=== PATIENT | female | born 1960 | race Caucasian/White ===

== ENCOUNTER → 2018-04-23 16:00 | Outpatient (CLI) | payer OTHER, SELFPAY | DX: Z23 Encounter for immunization (principal) | CPT/HCPCS: 90471; 90686 ==

== ENCOUNTER → 2019-04-24 12:15 | Outpatient (CLI) | payer OTHER, SELFPAY | DX: Z23 Encounter for immunization (principal) | CPT/HCPCS: 90471; 90686 ==

== ENCOUNTER → 2019-05-09 12:52 | Outpatient (CLI) | payer OTHER, SELFPAY ==
[2019-05-09 13:22] LABS: Add Manual Diff / Slide Review NO; Basophils Absolute Auto 0 /uL (0-100); Basophils Percent Auto 0.6 % (0-2); Eosinophils Absolute Auto 100 /uL (0-450); Eosinophils Percent Auto 2.6 % (2-4); Hematocrit 39.8 % (36-46); Hemoglobin 13.9 g/dL (12.0-16.0); Lymphocytes Absolute Auto 1100 /uL (1100-4500); Lymphocytes Percent Auto 31.7 % (25-40); Mean Corpuscular HGB Conc 34.9 % (30-36); Mean Corpuscular Hemoglobin 30.4 PG (26-34); Mean Corpuscular Volume 87.1 fL (80-100); Monocytes Absolute Auto 300 /uL (0-900); Monocytes Percent Auto 8.8 % (3-14); Neutrophils Absolute Auto 2000 /uL (1500-7000); Neutrophils Percent Auto 56.3 % (50-75); Platelet Count 193 X10^3/uL (150-400); Red Blood Cell Count 4.57 X10^6/uL (4.0-5.2); White Blood Cell Count 3.6 X10^3/uL (4.5-11.0)
[2019-05-09 14:55] LABS: Alanine Aminotransferase 18 IU/L (9-52); Albumin Globulin Ratio 2.1 (1.0-2.8); Alkaline Phosphatase 61 U/L (38-126); Aspartate Aminotransferase 22 IU/L (14-36); BUN Creatinine Ratio 21.7 (6-22); Bilirubin Total 0.7 mg/dL (0.2-1.3); Blood Urea Nitrogen 13 mg/dL (7-17); Calcium 10.4 mg/dL (8.4-10.2); Carbon Dioxide 31 mmol/L (22-32); Chloride 100 mmol/L (98-107); Estimated Glomerular Filt Rate > 60.0 mL/min (>60); Globulin 2.4 g/dL (1.7-4.1); Glucose 85 mg/dL (70-100); HEMOLYSIS < 15 (0-50); Lipase 96 U/L (23-300); Potassium 5.2 mmol/L (3.4-5.1); Sodium 140 mmol/L (137-145); Total Protein 7.4 g/dL (6.3-8.2)
[2019-05-13 14:40] LABS: Urea Breath Test >18YRS NOT DETECTED
== END ==
PROVIDERS: Hospitalist; PCP Internal Medicine; Visit Provider Internal Medicine
DX: R10.13 Epigastric pain (principal)
CPT/HCPCS: 36415; 80053; 83013; 83690; 85025

== ENCOUNTER → 2019-07-10 18:22 | Outpatient (CLI) | payer OTHER, SELFPAY ==
--- NOTE | 2019-07-10 18:25 | DI.MG.S_ITS ---
BILATERAL DIGITAL SCREENING MAMMOGRAM 3D/2D WITH CAD: 07/10/2019 CLINICAL: Routine screening. Comparison is made to exams dated: 11/07/2017 mammogram, 07/30/2014 mammogram, and 04/16/2014 mammogram - [facility]. The tissue of both breasts is heterogeneously dense. This may lower the sensitivity of mammography. Current study was also evaluated with a Computer Aided Detection (CAD) system. No significant masses, calcifications, or other findings are seen in either breast. There has been no significant interval change. IMPRESSION: NEGATIVE There is no mammographic evidence of malignancy. A 1 year screening mammogram is recommended. This exam was interpreted at Station ID: [id number]. NOTE: For mammograms, a report in lay terms will be sent to the patient. Approximately 15% of breast malignancies will not be visualized mammographically. In the management of a palpable breast mass, a negative mammogram must not discourage biopsy of a clinically suspicious lesion. Electronically Signed By: Arpita whipple/hola:07/11/2019 10:08:55 letter sent: Normal Exam ACR BI-RADS Category 1: Negative 3341F
== END ==
PROVIDERS: PCP Nurse Practitioner; Visit Provider Nurse Practitioner
DX: Z12.31 Encounter for screening mammogram for malignant neoplasm of breast (principal)
CPT/HCPCS: 77063; 77067

== ENCOUNTER → 2020-04-27 15:56 | Outpatient (CLI) | payer OTHER, SELFPAY | PROVIDERS: PCP Nurse Practitioner; Visit Provider Registered Nurse Diabetes Educator | DX: Z87.440 Personal history of urinary (tract) infections (principal) | CPT/HCPCS: 87086 ==

== ENCOUNTER → 2020-06-25 07:19 | Outpatient (CLI) | payer OTHER, SELFPAY ==
[2020-06-25 08:26] LABS: Add Manual Diff / Slide Review NO; Basophils Absolute Auto 0 /uL (0-100); Basophils Percent Auto 0.6 % (0-2); Eosinophils Absolute Auto 100 /uL (0-450); Eosinophils Percent Auto 3.8 % (2-4); Hematocrit 39.3 % (36-46); Hemoglobin 13.4 g/dL (12.0-16.0); Lymphocytes Absolute Auto 1100 /uL (1100-4500); Lymphocytes Percent Auto 36.9 % (25-40); Mean Corpuscular HGB Conc 34.1 % (30-36); Mean Corpuscular Hemoglobin 30.2 PG (26-34); Mean Corpuscular Volume 88.7 fL (80-100); Monocytes Absolute Auto 300 /uL (0-900); Monocytes Percent Auto 8.5 % (3-14); Neutrophils Absolute Auto 1500 /uL (1500-7000); Neutrophils Percent Auto 50.2 % (50-75); Platelet Count 182 X10^3/uL (150-400); Red Blood Cell Count 4.43 X10^6/uL (4.0-5.2); Red Cell Distribution Width 12.4 % (11.6-14.8)
[2020-06-25 08:35] LABS: Alanine Aminotransferase 11 IU/L (<35); Albumin 4.6 g/dL (3.5-5.0); Albumin Globulin Ratio 1.7 (1.0-2.8); Alkaline Phosphatase 62 U/L (38-126); Aspartate Aminotransferase 24 IU/L (14-36); BUN Creatinine Ratio 29.3 (6-22); Bilirubin Total 0.6 mg/dL (0.2-1.3); Blood Urea Nitrogen 17 mg/dL (7-17); Calcium 9.6 mg/dL (8.4-10.2); Carbon Dioxide 36 mmol/L (22-32); Chloride 105 mmol/L (98-107); Cholesterol 188 mg/dL (140-199); Estimated Glomerular Filt Rate > 60.0 mL/min (>60); Globulin 2.7 g/dL (1.7-4.1); Glucose 87 mg/dL (80-110); HDL Cholesterol 84 mg/dL (40-60); HEMOLYSIS < 15 (0-50); LDL Cholesterol Calculated 91 mg/dL (<100); Potassium 4.6 mmol/L (3.4-5.1); Sodium 141 mmol/L (137-145); Total Protein 7.3 g/dL (6.3-8.2); Triglycerides 63 mg/dL (35-150)
[2020-06-25 09:14] LABS: Free T3, Triiodothyronine Free 2.62 pg/mL (2.77-5.27); Free T4, Direct Thyroxine 1.01 ng/dL (0.78-2.19)
[2020-06-25 09:28] LABS: Thyroid Stimulating Hormone 1.32 uIU/mL (0.47-4.68)
[2020-06-28 17:31] LABS: Hep C Virus Ab w/Reflex Quant NEGATIVE s/c (NEGATIVE)
== END ==
PROVIDERS: PCP Nurse Practitioner; Referring Provider Nurse Practitioner; Visit Provider Nurse Practitioner
DX: Z00.00 Encounter for general adult medical examination without abnormal findings (principal); E83.52 Hypercalcemia
CPT/HCPCS: 36415; 80053; 80061; 84439; 84443; 84481; 85025; 86803

== ENCOUNTER → 2020-07-30 16:33 | Outpatient (CLI) | payer OTHER, SELFPAY ==
[2020-07-30] MEDS: COVID-19 VACC(MODERNA-1)/PF 100 MCG/0.5 ML VIAL IM (16:47)
== END ==
PROVIDERS: PCP Nurse Practitioner; Visit Provider Internal Medicine
DX: Z23 Encounter for immunization (principal)
CPT/HCPCS: 0011A; 91301

== ENCOUNTER → 2020-08-26 14:44 | Outpatient (CLI) | payer OTHER, SELFPAY ==
[2020-08-26] MEDS: COVID-19 VACC #2, MRNA(MOD) 100 MCG/0.5 ML VIAL IM (14:50)
== END ==
PROVIDERS: PCP Nurse Practitioner; Visit Provider Internal Medicine
DX: Z23 Encounter for immunization (principal)
CPT/HCPCS: 0012A; 91301

== ENCOUNTER → 2020-11-29 10:40 | Outpatient (CLI) | payer OTHER, SELFPAY ==
[2020-11-29 12:11] LABS: COVID19 -Nasal RAPID Negative (Negative)
== END ==
PROVIDERS: PCP Nurse Practitioner; Visit Provider Surgery
DX: Z20.822 Contact with and (suspected) exposure to COVID-19 (principal)
CPT/HCPCS: 87635; C9803

== ENCOUNTER 2020-11-30 08:12 | Day surgery (SDC) | payer OTHER, SELFPAY ==
[2020-11-30] VITALS (13 sets, daily range): BP systolic 87–105; BP diastolic 40–62; PULSE 66–79; RESP 12–19; TEMP 36.1–36.6; O2SAT 100; BMI 22.2
--- NOTE | 2020-11-30 08:21 | PM.HP.1 ---
History of Present Illness History of Present Illness Date Patient Seen: 11/30/20 Time Patient Seen: 08:21 Chief complaint: SDC Narrative: colon cancer screening No current gi issues, no family history for colon cancer. This is her second scope, last one was 8 years ago. Polyps were found that were not adenomatous Patient History Medical History Cervical somatic dysfunction Frequent UTI Postmenopausal HRT (hormone replacement therapy) Right arm pain Upper extremity somatic dysfunction Family & Social History Family History Grandmother Cancer Father Cancer Mother Cancer Wegeners granulomatosis Tobacco & Substance use: Smoking Status Never smoker alcohol intake current Meds Home Medications and Allergies Home Medications Medication Instructions Recorded Confirmed Type estradiol 0.5 mg tablet 0.5 mg PO DAILY 90 Days #90 tab 08/23/20 08/23/20 Rx progesterone micronized 100 mg 100 mg PO DAILY 90 Days #90 cap 08/23/20 08/23/20 Rx capsule Allergies Allergy/AdvReac Type Severity Reaction Status Date / Time prochlorperazine Allergy Severe Anaphylaxis Verified 11/30/20 08:27 [From Compazine] sulfamethoxazole Allergy Intermediate lip Verified 11/30/20 08:27 [From Bactrim] swelling, facial rash trimethoprim [From Bactrim] Allergy Intermediate lip Verified 11/30/20 08:27 swelling, facial rash Review of Systems Review of Systems ROS: Yes All systems reviewed with the patient and are negative except as otherwise documented Exam Const General: cooperative and healthy appearing [facility] Head: normal to inspection Ears: hearing grossly normal bilaterally Nose: external nose normal Eyes Sclera: sclerae normal Pupils: PERRL Neck Neck: trachea midline Chest Chest: normal inspection of the chest Resp Effort & Inspection: normal respiratory effort Auscultation: clear to auscultation bilaterally Cardio Rate: regular rate Rhythm: regular rhythm GI Inspection: normal to inspection Palpation: soft Skin General: no rashes or lesions noted Rashes: no rashes Trauma: no lacerations or abrasions Neuro General: patient alert and patient oriented x3 Extrem General: normal to inspection and full ROM Psych Appearance: grossly normal Judgment: judgment good Objective ECG Impression: asymptomatic colon cancer screening Assessment & Plan Assessment & Plan narrative: colonoscopy with moderate sedation COVID-19 COVID-19 status: Negative Time Spent With Patient Time with patient: less than 15 minutes
[2020-11-30] MEDS: LACTATED RINGERS 1,000 ML 42 ML IV (08:40)
[2020-11-30] MEDS: fentaNYL 250 MCG/5 ML INJ IV (09:40)
[2020-11-30] MEDS: MIDAZOLAM 5 MG/5 ML VIAL IV (09:45)
--- NOTE | 2020-11-30 09:56 | PM.OP.1 ---
Operative Date/Time/Diagnoses Date of procedure: 11/30/20 Time of procedure: 09:58 Pre-op diagnosis: screen colonoscopy Post-op diagnosis: same Procedure & Clinicians Procedure: partial colonoscopy, aborted due to difficult sedation and poor bowel pre Same procedure as scheduled: Yes Indications: colon cancer screening Click Yes if Unassisted: No Anesthesia Type: Sedation Operative Notes Findings: poor bowel prep, only reached hepatic flexure Specimen(s): none sent Blood products transfused: none Procedure in detail: Prep diagnosis: Colon cancer screening Postop diagnosis: Same Operative procedure: Colonoscopy with moderate sedation Surgeon: Lashae Hernandez MD Anesthetic: Fentanyl and Versed, see nurse's note for dosing Findings: Poor bowel prep. I was only able to reach hepatic flexure, at which time patient was uncomfortable and sedation was difficult. Case aborted at that point. No identifiable masses with withdrawal, however small polyps could have been overlooked. Procedure: Patient placed in lateral position. Rectal exam is performed showing normal tone no masses. Colonoscope inserted in the rectum advanced to hepatic flexure with difficulty. External pressure applied. Poor bowel prep. At the hepatic flexure with additional pressure and ?stiffening? of the scope? we were unable to properly sedated for the remaining portion. Colonoscopy aborted that that time. Scope withdrew without any evidence of masses. Plan: Reschedule colonoscopy. Suggest GoLYTELY bowel prep, Suprep use this time. Highly recommend with anesthesia Complications: none Post-operative Condition: stable Disposition: PACU Plan for aftercare: reschedule for better prep and with anesthesia
--- NOTE | 2020-11-30 10:52 | SUR.PHASEII ---
Addendum entered by Debora Chin R.N. 11/30/20 11:30: 1115: IVF COMPLETE. ORTHOSTATIC VSS SUPINE 88/54 HR 69, SITTING 87/52 HR 71, STANDING 90/52 HR 72. PATIENT STATES THIS IS ALL WITHIN PARAMETERS OF HER BASELINE AND SHE IS ASYMPTOMATIC. ABLE TO DRESS SELF, STABLE ON FEET. DISCHARGED TO IS STABLE CONDITION. Original Note: OUTPATIENT DC NOTE: PATIENT'S WITH MODEST HYPOTENSION. STATES NORMALLY RUNS LOW. 91/57 HR 69 SUPINE, SITTING 83/54 HR 71, STANDING 81/48 HR 71. ASYMPTOMATIC. PATIENT DRINKING OJ WITH IVF WIDE OPEN. WILL FINISH THE LR INFUSING PRIOR TO DC HOME.
== END 2020-11-30 11:25 | disposition home or self-care (01) ==
PROVIDERS: PCP Nurse Practitioner; Referring Provider Nurse Practitioner; Visit Provider Surgery
PROC: 0DJD8ZZ Inspection of Lower Intestinal Tract, Via Natural or Artificial Opening Endoscopic (ICD-10-PCS; CPT 45378; principal; 2020-11-30 09:15)
DX: Z12.11 Encounter for screening for malignant neoplasm of colon (principal); Z53.09 Procedure and treatment not carried out because of other contraindication
CPT/HCPCS: 45378; J2250; J3010

== ENCOUNTER → 2021-05-17 09:00 | Outpatient (CLI) | payer OTHER, SELFPAY | PROVIDERS: PCP Nurse Practitioner; Referring Provider Internal Medicine; Visit Provider Internal Medicine | DX: Z23 Encounter for immunization (principal) | CPT/HCPCS: 90471; 90686 ==

== ENCOUNTER → 2021-05-27 13:27 | Outpatient (CLI) | payer OTHER, SELFPAY ==
[2021-05-27] MEDS: COVID-19 VACC #3, MRNA(MOD) 50 MCG/0.25 ML VIAL IM (13:33)
== END ==
PROVIDERS: PCP Nurse Practitioner; Visit Provider Internal Medicine
DX: Z23 Encounter for immunization (principal)
CPT/HCPCS: 0013A; 91301

== ENCOUNTER → 2021-07-20 09:43 | Outpatient (CLI) | payer OTHER, SELFPAY ==
[2021-07-20 12:13] LABS: COVID19 -Nasal RAPID Negative (Negative)
== END ==
PROVIDERS: PCP Nurse Practitioner; Visit Provider Nurse Practitioner Family
DX: Z20.822 Contact with and (suspected) exposure to COVID-19 (principal); R09.81 Nasal congestion; R06.7 Sneezing; R09.89 Other specified symptoms and signs involving the circulatory and respiratory systems
CPT/HCPCS: 87635

== ENCOUNTER → 2021-09-02 14:07 | Outpatient (CLI) | payer OTHER, SELFPAY ==
[2021-09-02 14:56] LABS: COVID19 -Nasal RAPID Negative (Negative)
== END ==
PROVIDERS: PCP Nurse Practitioner; Visit Provider Family Medicine Sleep Medicine
DX: Z20.822 Contact with and (suspected) exposure to COVID-19 (principal)
CPT/HCPCS: 87635; C9803

== ENCOUNTER 2021-09-05 10:24 | Day surgery (SDC) | payer OTHER, SELFPAY ==
[2021-09-05] VITALS (7 sets, daily range): BP systolic 98–105; BP diastolic 49–62; PULSE 66–83; RESP 10–16; TEMP 36.3–36.7; O2SAT 96–100; BMI 22.2
--- NOTE | 2021-09-05 | PATH_ITS ---
[facility] Accession Number: [id number] . 01 Material submitted: . colon - RECTAL/SIGMOID COLON POLYP . 02 Diagnosis: Rectal/Sigmoid Colon, Polyp, Biopsy: Tubular adenoma. MRV 09/07/2021 1216 Local . 02 Electronically signed: . Zaynab Desir MD, Pathologist NPI- [id number] . 01 Gross description: . RECTAL/SIGMOID COLON POLYP: Received in formalin are 2 fragment(s) of jensen, soft tissue measuring 0.2 x 0.2 x 0.2 cm to 0.1 x 0.1 x 0.1 cm submitted entirely in 1 cassette(s) /CPE 09/06/2021 1106 Local . 02 Pathologist provided ICD-10: D12.7 . 02 CPT . 176005 Specimen Comment: A courtesy copy of this report has been sent to Pathology Performed at: 01 [facility] [address] [facility], [place], [place] [id number] MD Colin Delaney MD Phone: [phone] Performed at: 02 [facility] [place] [address] [place], [place] [id number] MD Zaynab Desir MD Phone: [phone]
[2021-09-05] MEDS: SODIUM CHLORIDE 0.9% 1,000 ML 84 ML IV (11:25)
--- NOTE | 2021-09-05 12:57 | PM.HP.1 ---
History of Present Illness History of Present Illness Date Patient Seen: 09/05/21 Time Patient Seen: 12:57 Chief complaint: SDC Narrative: I reviewed the note from Dr. Horton no changes. The patient struggled with the recommended bowel prep. She figures she took down about 1.5 gal of GoLYTELY. The incomplete colonoscopy from November 2020 is noted. Patient History Medical History Cervical somatic dysfunction Frequent UTI Postmenopausal HRT (hormone replacement therapy) Right arm pain Upper extremity somatic dysfunction Family & Social History Family History Grandmother Cancer Father Cancer Mother Cancer Wegeners granulomatosis Social History: household members spouse Tobacco & Substance use: Smoking Status Never smoker alcohol intake current alcohol intake frequency holiday/special occasion Substance Use Type does not use Meds Home Medications and Allergies Home Medications Medication Instructions Recorded Confirmed Type estradiol 0.5 mg tablet 0.5 mg PO DAILY 90 Days #90 tab 08/23/20 09/05/21 Rx progesterone micronized 100 mg 100 mg PO DAILY 90 Days #90 cap 03/09/21 09/05/21 Rx capsule Allergies Allergy/AdvReac Type Severity Reaction Status Date / Time prochlorperazine Allergy Severe Anaphylaxis Verified 09/05/21 11:02 [From Compazine] sulfamethoxazole Allergy Intermediate lip Verified 09/05/21 11:02 [From Bactrim] swelling, facial rash trimethoprim [From Bactrim] Allergy Intermediate lip Verified 09/05/21 11:02 swelling, facial rash Review of Systems Review of Systems ROS: Yes All systems reviewed with the patient and are negative except as otherwise documented Exam Vital Signs (past 8 hours): - 09/05/21 11:06 Temperature 98.0 F Pulse Rate 83 Respiratory Rate 16 Blood Pressure 105/62 Pulse Oximetry 100 Oxygen Delivery Method Room Air Const General: cooperative and comfortable Orientation: alert HENMT Head: normocephalic Ears: external ears normal Nose: external nose normal Face and sinus: normal facial exam Mouth: oral mucosae normal Eyes General: appearance normal, both eyes and all related structures Neck Neck: normal visual inspection Chest Chest: normal inspection of the chest Resp Effort & Inspection: normal respiratory effort Cardio Rate: regular rate GI Inspection: normal to inspection Skin General: no rashes or lesions noted and No jaundice Neuro General: patient alert and moves all extremities Cognition: normal cognition Speech: speech normal Extrem General: no pedal edema Psych Appearance: grossly normal Assessment & Plan Assessment & Plan narrative: 61-year-old female indicated for colon cancer screening. She struggles with constipation at her baseline. Colonoscopy is planned for today. Time Spent With Patient Critical Care time: I spent a total of [] minutes of critical care time on this patient's care today; this time is exclusive of procedural time.
--- NOTE | 2021-09-05 13:00 | PM.PREOP ---
Pre-operative Note COVID-19 COVID-19 status: Negative Result date/Date tested (Pos, Neg/Pending): 09/02/21 Criteria for continued procedure: Possibility delay results in more complex future surgery or treatment Interval Note History & Physical reviewed/Exam performed by Physician: Yes Changes to H&P: No ASA Class (for procedural sedation): II
--- NOTE | 2021-09-05 14:34 | PM.OP.COLON ---
Operative Date/Time/Diagnoses Date of procedure: 09/05/21 Time of procedure: 14:35 Pre-op diagnosis: Colon cancer screening prior incomplete exam Post-op diagnosis: same Procedure & Clinicians Study performed: Colonoscopy with cold forceps polypectomy Same procedure as scheduled: Yes Indications: Colon cancer screening prior incomplete exam Surgeon: Torrey Renee Procedure Notes SCOAP/Timeout: Done Procedure in detail: After the risks and benefits were explained, written and verbal informed consent was obtained. The patient was brought into the procedure room and placed into the left lateral decubitus position. Conscious sedation medication was applied as per nursing documentation. Digital rectal examination was accomplished. The scope was introduced into the patient and advanced under direct visualization to the cecum as identified by the appendiceal orifice and ileocecal valve. The scope was slowly withdrawn to carefully examine the mucosa for any defects or lesions. Comprehensive imaging was accomplished throughout the rectum including the dentate line. The colon was decompressed, the scope was then removed from the patient who tolerated the procedure well. Bowel prep fair at best. Copious amounts of irrigation was required. Some areas could not be fully cleanse secondary to debris that would clog the scope. Pediatric colonoscope Scope withdrawal time: 14 minutes Sedation minutes: 26 Complications: none Impression: Tortuous colon. Small 4 mm polyp in the rectosigmoid region removed with cold forceps. Within the limitations of bowel prep no additional significant pathology appreciated. Endoscopic diagnosis 1. Tortuous colon 2. Diminutive colon polyps Post-procedure Plan for aftercare: 1. Await histopathology 2. Continue constipation regimen 3. Repeat colonoscopy 5 years with double prep Disposition: PACU
--- NOTE | 2021-09-05 15:48 | SUR.PHASEII ---
All nursing care performed and charted by Charla PARSON in Phase I and II supervised by Dionna Solorio RN
== END 2021-09-05 15:26 | disposition home or self-care (01) ==
PROVIDERS: PCP Nurse Practitioner; Referring Provider Internal Medicine Gastroenterology; Visit Provider Internal Medicine Gastroenterology
PROC: 0DJD8ZZ Inspection of Lower Intestinal Tract, Via Natural or Artificial Opening Endoscopic (ICD-10-PCS; CPT 45378; principal; 2021-09-05 13:30)
DX: Z12.11 Encounter for screening for malignant neoplasm of colon (principal); D12.7 Benign neoplasm of rectosigmoid junction
CPT/HCPCS: 45380; J2704

== ENCOUNTER → 2022-04-04 15:46 | Outpatient (CLI) | payer OTHER, SELFPAY ==
--- NOTE | 2022-04-04 15:47 | DI.MG.S_ITS ---
BILATERAL DIGITAL SCREENING MAMMOGRAM 3D/2D WITH CAD: 04/04/2022 CLINICAL: Routine screening. Comparison is made to exams dated: 07/10/2019 mammogram, 11/07/2017 mammogram, and 07/30/2014 mammogram - [facility]. Both breasts are heterogeneously dense, which may obscure small masses (category c / 51-75% glandular tissue). Current study was also evaluated with a Computer Aided Detection (CAD) system. No significant masses, calcifications, or other findings are seen in either breast. There has been no significant interval change. IMPRESSION: NEGATIVE There is no mammographic evidence of malignancy. A 1 year screening mammogram is recommended. Based on the Tyrer Cuzick model (a risk assessment model) the patient's lifetime risk is 13.7% and her 10 year risk is 6.0%. According to the ACR, ACS, and NCCN guidelines, an annual breast MRI exam along with mammogram is recommended if the patient's lifetime risk is 20% or greater. This exam was interpreted at Station ID: [id number]. NOTE: For mammograms, a report in lay terms will be sent to the patient. Approximately 15% of breast malignancies will not be visualized mammographically. In the management of a palpable breast mass, a negative mammogram must not discourage biopsy of a clinically suspicious lesion. Electronically Signed By: Alicia bonilla/hola:04/05/2022 15:07:03 letter sent: Normal Exam ACR BI-RADS Category 1: Negative 3341F
== END ==
PROVIDERS: PCP Nurse Practitioner; Referring Provider Nurse Practitioner; Visit Provider Nurse Practitioner
DX: Z12.31 Encounter for screening mammogram for malignant neoplasm of breast (principal)
CPT/HCPCS: 77063; 77067

== ENCOUNTER → 2022-04-18 09:00 | Outpatient (CLI) | payer OTHER, SELFPAY | PROVIDERS: PCP Nurse Practitioner; Referring Provider Internal Medicine; Visit Provider Internal Medicine | DX: Z23 Encounter for immunization (principal) | CPT/HCPCS: 90471; 90686 ==

== ENCOUNTER → 2022-09-12 11:10 | Outpatient (CLI) | payer BC, SELFPAY ==
[2022-09-12 12:45] LABS: Appearance Urine UA CLEAR; Bilirubin Urine UA NEGATIVE (NEGATIVE); Color Urine UA YELLOW; Glucose Urine UA NEGATIVE (Negative); Ketones Urine UA NEGATIVE (NEGATIVE); Leukocyte Esterase Urine UA NEGATIVE (NEGATIVE); Nitrite Urine UA NEGATIVE (Negative); Occult Blood Urine UA NEGATIVE (Negative); Protein Urine UA NEGATIVE (Negative); Specific Gravity Urine UA <=1.005 (1.000-1.035); Urobilinogen Urine UA 0.2 E.U./dL (0.2)
[2022-09-12 12:51] LABS: pH Urine UA 6.5 (4.5-8.0)
[2022-09-12 12:52] LABS: Bacteria Urine None Seen; Culture Indicated Urine Cult Not Indicated; RBC Urine None Seen (0-5/HPF); Squamous Epithelial Cell Urine 0-1 /HPF (0-5/HPF); WBC Urine 0-1/HPF (0-5/HPF)
== END ==
PROVIDERS: PCP Nurse Practitioner; Referring Provider Internal Medicine; Visit Provider Internal Medicine
DX: N39.0 Urinary tract infection, site not specified (principal); R30.0 Dysuria
CPT/HCPCS: 81001

== ENCOUNTER → 2023-10-31 09:43 | Outpatient (CLI) | payer BC, SELFPAY | LOC: CAR 09:43 | PROVIDERS: PCP Nurse Practitioner; Referring Provider Nurse Practitioner; Visit Provider Nurse Practitioner | DX: R00.2 Palpitations (principal) | CPT/HCPCS: 93242 ==

== ENCOUNTER → 2023-11-05 15:56 | Outpatient (CLI) | payer BC, SELFPAY ==
--- NOTE | 2023-11-05 15:57 | DI.MG.S_ITS ---
BILATERAL DIGITAL SCREENING MAMMOGRAM 3D/2D WITH CAD: 11/05/2023 CLINICAL: Routine screening. Comparison is made to exams dated: 04/04/2022 mammogram, 07/10/2019 mammogram, and 11/07/2017 mammogram - [facility]. Both breasts are heterogeneously dense, which may obscure small masses (category c / 51-75% glandular tissue). Current study was also evaluated with a Computer Aided Detection (CAD) system. No significant masses, calcifications, or other findings are seen in either breast. There has been no significant interval change. IMPRESSION: NEGATIVE There is no mammographic evidence of malignancy. A 1 year screening mammogram is recommended. Based on the Tyrer Cuzick model (a risk assessment model) the patient's lifetime risk is 13.3% and her 10 year risk is 6.0%. According to the ACR, ACS, and NCCN guidelines, an annual breast MRI exam along with mammogram is recommended if the patient's lifetime risk is 20% or greater. This exam was interpreted at Station ID: [id number]. NOTE: For mammograms, a report in lay terms will be sent to the patient. Approximately 15% of breast malignancies will not be visualized mammographically. In the management of a palpable breast mass, a negative mammogram must not discourage biopsy of a clinically suspicious lesion. Electronically Signed By: Alicia bonilla/hola:11/06/2023 14:19:40 letter sent: Normal Exam ACR BI-RADS Category 1: Negative 3341F
== END ==
LOC: MAMMO 15:56
PROVIDERS: PCP Nurse Practitioner; Referring Provider Nurse Practitioner; Visit Provider Nurse Practitioner
DX: Z12.31 Encounter for screening mammogram for malignant neoplasm of breast (principal); R92.333 Mammographic heterogeneous density, bilateral breasts
CPT/HCPCS: 77063; 77067

== ENCOUNTER → 2025-01-03 11:17 | Outpatient (CLI) | payer BC, SELFPAY ==
--- NOTE | 2025-01-03 11:19 | DI.MG.S_ITS ---
MM screening mammo BI: 01/03/2025. BI-RADS: 1 CLINICAL: 64-year old female for bilateral screening mammogram. Tyrer-Cuzick lifetime risk of 9.8%. No personal or first-degree family history of breast cancer. PRIOR EXAMS 11/05/2023, 04/04/2022, 07/10/2019, 11/07/2017. MAMMOGRAPHY TECHNIQUE: 2D and 3D (tomosynthesis) digital mammographic views obtained, with additional images as needed for full coverage. Current study was also evaluated with a Computer Aided Detection (CAD) system. DENSITY C. The breasts are heterogeneously dense, which may obscure small masses. MAMMOGRAPHY FINDINGS Bilateral: No suspicious mass, asymmetry, microcalcification, or other abnormality seen. No significant change from comparison. IMPRESSION: * No evidence of malignancy. RECOMMENDATIONS Bilateral * Annual screening mammography. OVERALL ASSESSMENT CATEGORY BI-RADS-1: Negative. The [employer] recommends annual screening mammography beginning at age 40 for women with average risk of breast cancer. ELECTRONICALLY SIGNED: Alicia Felder M.D. on 01/05/2025 at 03:46:37 PM PT Interpreting Station ID: [id number]
== END ==
LOC: MAMMO 11:18
PROVIDERS: PCP Family Medicine; Referring Provider Family Medicine; Visit Provider Family Medicine
DX: Z12.31 Encounter for screening mammogram for malignant neoplasm of breast (principal); R92.333 Mammographic heterogeneous density, bilateral breasts
CPT/HCPCS: 77063; 77067

== ENCOUNTER → 2025-04-21 14:18 | Outpatient (CLI) | payer MEDICARE, SELFPAY ==
--- NOTE | 2025-04-21 14:19 | DI.RAD.S_ITS ---
PROCEDURE: XR DEXA AXIAL SKELETON INDICATIONS: Osteoporosis screening COMPARISON: None. FINDINGS: Lumbar Spine: Bone mineral density 0.958 g/cm2, T score -0.8. Left Femoral Neck: Bone mineral density 0.675 g/cm2, T score -1.6. Left Hip: Bone mineral density 0.747 g/cm2, T score -1.6. Fracture Risk Calculation (when applicable): 10-year fracture risk of a major osteoporotic fracture 17 percent and of a hip fracture 1.0 percent. (T score greater or equal to -1.0 to: NORMAL) (T score from -1.1 to -2.4: OSTEOPENIA) (T score less than or equal to -2.5: OSTEOPOROSIS) IMPRESSION: Osteopenia within the left femoral neck and hip. Follow-up guidelines as follows: Osteoporosis: Consider a repeat DEXA and Vertebral Fracture Assessment (VFA) exam in 2 years or sooner if medically necessary, to reassess this patient's status. Osteopenia: Consider a repeat DEXA in 2-3 years to reassess this patient's status, or if there is a new clinical indication. Normal: Consider a repeat DEXA in 5 years or sooner, or if there is a new clinical indication. All treatment decisions require clinical judgment and consideration of individual patient factors, including patient preferences, comorbidities, previous drug use, risk factors not captured in the FRAX model (e.g., frailty, falls, vitamin D deficiency, increased bone turnover, interval significant decline in bone density ) and possible under- or over-estimation of fracture risk by FRAX. In addition, the NOF Guide recommends that FDA-approved medical therapies be considered in postmenopausal women and men age >= 50 years with a: * Hip or vertebral (clinical or morphometric) fracture * T-score of <=-2.5 at the spine or hip * Ten-year fracture probability by FRAX of >= 3% for hip fracture or >=20% for major osteoporotic fracture. Dictated by: Taisha Turner M.D. on 04/21/2025 at 18:04 Approved by: Taisha Turner M.D. on 04/21/2025 at 18:05
== END ==
LOC: RAD 14:18
PROVIDERS: PCP Family Medicine; Referring Provider Family Medicine; Visit Provider Family Medicine
DX: M85.89 Other specified disorders of bone density and structure, multiple sites (principal); Z78.0 Asymptomatic menopausal state; Z76.89 Persons encountering health services in other specified circumstances; Z79.890 Hormone replacement therapy; K44.9 Diaphragmatic hernia without obstruction or gangrene; Z13.220 Encounter for screening for lipoid disorders; I47.10 Supraventricular tachycardia, unspecified
CPT/HCPCS: 77080